=== PATIENT | male | born 1955 | race Caucasian/White ===

== ENCOUNTER 2019-05-05 10:54 | Outpatient (CLI) | payer OTHER ==
--- NOTE | 2019-05-05 13:11 | RAD ---
LUMBAR SPINE SERIES 2 VIEWS: Date: 05/05/19 HISTORY: Follow-up back surgery 5 weeks ago. COMPARISON: None. FINDINGS: Vertebral bodies are normal in height. Bilateral pedicle screws have been placed at L4, L5, and S1. M arkers of disc implants are within the confines of the disc levels. There is a very minimal retrolist hesis of L4 on L5. Moderate vascular calcifications are seen. IMPRESSION: Postoperative changes of the spine. POS: IMAN
== END 2019-05-05 10:55 | disposition home or self-care (01) ==
LOC: SCSRAD 10:54
PROVIDERS: ATTEND Neurological Surgery
DX: M54.9 Dorsalgia, unspecified (principal); Z98.890 Other specified postprocedural states
CPT/HCPCS: 72100

== ENCOUNTER 2019-06-19 12:15 | Outpatient (CLI) | payer OTHER ==
--- NOTE | 2019-06-19 12:49 | RAD ---
3 views of the lumbar spine INDICATION: Postop COMPARISON: Prior exam dated May 05, 2019 IMPRESSION: Posterior lateral spinal instrumentation of L4-S1 is unchanged in position. Mild spondylo sis is stable. Cholecystectomy clips within the right upper quadrant are stable. There are are scattered vascular calcifications involving the abdominal aorta. IMPRESSION: Stable postoperative lumbar spine.
== END 2019-06-19 12:16 | disposition home or self-care (01) ==
LOC: SCSRAD 12:15
PROVIDERS: ATTEND Neurological Surgery
DX: M54.5 Low back pain (principal); Z98.890 Other specified postprocedural states
CPT/HCPCS: 72100

== ENCOUNTER 2019-11-13 08:43 | Outpatient (CLI) | payer OTHER ==
--- NOTE | 2019-11-13 11:10 | RAD ---
LUMBAR SPINE 2 VIEWS: Date: 11/13/2019 HISTORY: Back pain. COMPARISON: 06/19/2019 films. FINDINGS: Postoperative changes are again noted. Pedicle screws and rods transfix L4, L5, and S1. No evidence o f loosening or change in the hardware position. Interbody implants are unchanged in position. Posteri or alignment is preserved and stable. No interval change from 06/19/2019. IMPRESSION: Postoperative and degenerative changes of lumbar spine again noted and appear stable. POS: HEATHER
== END 2019-11-13 08:44 | disposition home or self-care (01) ==
LOC: SCSRAD 08:43
PROVIDERS: ATTEND Neurological Surgery
DX: M54.5 Low back pain (principal); M47.816 Spondylosis without myelopathy or radiculopathy, lumbar region; Z98.890 Other specified postprocedural states
CPT/HCPCS: 72100

== ENCOUNTER 2021-07-29 08:47 | Emergency (ER) | payer OTHER ==
[2021-07-29] MEDS ORDERED: Ketorolac Tromethamine 30 MG/ML VIAL ONE (10:40)
== END 2021-07-29 10:50 | disposition home or self-care (01) ==
LOC: ERS 08:47
DX: M25.561 Pain in right knee (principal); I10 Essential (primary) hypertension; E78.5 Hyperlipidemia, unspecified; Z87.891 Personal history of nicotine dependence; Z79.899 Other long term (current) drug therapy; Z79.82 Long term (current) use of aspirin
CPT/HCPCS: 96372; J1885

== ENCOUNTER 2023-07-05 10:42 | Emergency (ER) | payer OTHER | END 2023-07-05 11:42 | disposition home or self-care (01) | LOC: ERS 10:42 | DX: S67.195A Crushing injury of left ring finger, initial encounter (principal); S62.635A Displaced fracture of distal phalanx of left ring finger, initial encounter for closed fracture; S60.042A Contusion of left ring finger without damage to nail, initial encounter; I10 Essential (primary) hypertension; E78.5 Hyperlipidemia, unspecified; F17.210 Nicotine dependence, cigarettes, uncomplicated; W18.40XA Slipping, tripping and stumbling without falling, unspecified, initial encounter; Z79.899 Other long term (current) drug therapy ==

== ENCOUNTER 2023-08-04 11:15 | Emergency (ER) | payer OTHER ==
[2023-08-04] MEDS ORDERED: Morphine 4 MG/ML VIAL ONE (11:47)
[2023-08-04 11:58] LABS: #Basophils 0.1 thou/uL (0.0-0.2); #Eosinphils 0.2 thou/uL (0.0-0.7); #Monocytes 1.1 thou/uL (0.11-0.59); #Neutrophils 7.2 thou/uL (1.40-6.50); %Basophils 0.6 % (0.0-1.0); %Eosinophils 1.9 % (0.0-10.0); %Lymphocytes 17.8 % (21.0-51.0); %Monocytes 10.5 % (0.0-10.0); %Neutrophils 68.5 % (42.0-75.0); Hematocrit 50.6 % (42.0-52.0); Hemoglobin 17.5 g/dL (14.0-18.0); Mean Corpuscular HGB CONC 34.6 g/dL (32.0-36.0); Mean Corpuscular Hemoglobin 35.7 pg (27.0-31.0); Mean Corpuscular Volume 103.3 fl (78.0-98.0); Mean Platelet Volume 8.9 fL (7.4-10.4); Platelet Count 219 10x3/uL (130-400); RBC Distribution Width 12.8 % (11.5-14.5); White Blood Cell (WBC) Count 10.5 10x3/uL (4.8-10.8)
[2023-08-04 12:15] LABS: PTT 26.8 sec (22.9-36.1); Prothrombin Time 12.9 sec (12.0-14.7)
[2023-08-04 12:19] LABS: ALT (SGPT) 37 U/L (8-55); AST (SGOT) 32 U/L (5-34); Albumin 4.7 g/dL (3.4-4.8); Alkaline Phosphatase 78 U/L (40-110); Anion Gap 13 mmol/L (10-20); BUN (Urea Nitrogen) 19 mg/dL (8.4-25.7); Bilirubin, Total 1.4 mg/dL (0.2-1.2); Calc. Creatinine Clearance 0 mL/min (70-130); Carbon Dioxide 28 mmol/L (23-31); Chloride 97 mmol/L (98-107); Estimated GFR 48; Globulin 3.3 g/dL (2.4-3.5); Glucose 111 mg/dL (80-115); Lipase 27 U/L (8-78); Sodium 134 mmol/L (136-145)
[2023-08-04 12:22] LABS: Troponin I Less than 0.010 ng/mL (< 0.028)
[2023-08-04 12:34] LABS: Influenza A by NAA Not Detected (NotDetected); Influenza B by NAA Not Detected (NotDetected); SARS-CoV-2 NAA Rapid Test Not Detected (NotDetected)
== END 2023-08-04 14:51 | disposition home or self-care (01) ==
LOC: ERS 11:15
DX: R04.2 Hemoptysis (principal); R79.89 Other specified abnormal findings of blood chemistry; I10 Essential (primary) hypertension; E78.5 Hyperlipidemia, unspecified; F17.210 Nicotine dependence, cigarettes, uncomplicated; Z79.82 Long term (current) use of aspirin; Z79.899 Other long term (current) drug therapy
CPT/HCPCS: 36415; 71045; 71275; 80053; 83690; 83880; 84484; 85025; 85610; 85730; 93005; 94760; 96374; J2270

== ENCOUNTER 2024-01-08 20:10 | Emergency (ER) | payer OTHER ==
[2024-01-08 21:24] LABS: #Basophils 0.06 10x3/uL (0.0-0.2); %Basophils 0.6 % (0.0-1.0); %Eosinophils 3.4 % (0.0-10.0); %Lymphocytes 36.4 % (21.0-51.0); %Monocytes 9.3 % (0.0-10.0); %Neutrophils 49.8 % (42.0-75.0); Hematocrit 45.2 % (42.0-52.0); Hemoglobin 15.5 g/dL (14.0-18.0); Mean Corpuscular HGB CONC 34.3 g/dL (32.0-36.0); Mean Corpuscular Hemoglobin 36.3 pg (27.0-31.0); Mean Corpuscular Volume 105.9 fL (78.0-98.0); Mean Platelet Volume 9.3 fL (7.4-10.4); Platelet Count 182 10x3/uL (130-400); RBC Distribution Width 13.2 % (11.5-14.5); Red Blood Cell (RBC) Count 4.27 mill/uL (4.70-6.10)
[2024-01-08] MEDS ORDERED: Ketorolac Tromethamine 30 MG (1 mL) VIAL ONE (21:35)
[2024-01-08] MEDS ORDERED: Acetaminophen 500 MG TAB ONE (21:49)
[2024-01-08 21:56] LABS: ALT (SGPT) 48 U/L (8-55); AST (SGOT) 54 U/L (5-34); Albumin 4.1 g/dL (3.4-4.8); Alkaline Phosphatase 52 U/L (40-110); Anion Gap 16 mmol/L (10-20); BUN (Urea Nitrogen) 16 mg/dL (8.4-25.7); Bilirubin, Total 0.6 mg/dL (0.2-1.2); Calc. Creatinine Clearance 0 mL/min (70-130); Calcium 9.5 mg/dL (7.8-10.44); Carbon Dioxide 18 mmol/L (23-31); Chloride 107 mmol/L (98-107); Estimated GFR 54; Globulin 3.1 g/dL (2.4-3.5); Glucose 85 mg/dL (80-115); Lipase 46 U/L (8-78); Potassium 3.7 mmol/L (3.5-5.1); Protein, Total 7.2 g/dL (5.8-8.1); Sodium 137 mmol/L (136-145)
== END 2024-01-08 23:10 | disposition home or self-care (01) ==
LOC: ERS 20:10
DX: K40.90 Unilateral inguinal hernia, without obstruction or gangrene, not specified as recurrent (principal); I12.9 Hypertensive chronic kidney disease with stage 1 through stage 4 chronic kidney disease, or unspecified chronic kidney disease; N18.9 Chronic kidney disease, unspecified; Z55.6 Problems related to health literacy
CPT/HCPCS: 36415; 74176; 80053; 83605; 83690; 85025; J1885